=== PATIENT | female | born 1955 | race Caucasian/White ===

== ENCOUNTER → 2020-03-07 | Outpatient (CLI) | payer OTHER, SELFPAY ==
[~2020-03-07] MED LIST: VIBRAMYCIN 100100 MG PO; ZOFRAN4 MG PO
== END ==
LOC: CT 10:30
DX: R10.32 Left lower quadrant pain (principal); K59.00 Constipation, unspecified; R16.1 Splenomegaly, not elsewhere classified
CPT/HCPCS: 36415; 82565; 84520; Q9967